=== PATIENT | female | born 1970 | race American Indian/Alaskan Native ===

== ENCOUNTER 2017-03-27 19:40 | Emergency (ER) | payer OTHER ==
[2017-03-27 19:40] VITALS: BMI 29.8
[2017-03-27 19:49] VITALS: TEMP 98
[2017-03-27] MEDS ORDERED: DiphenhydrAMINE 50 mg/ml Inj IVP STA (20:06)
[2017-03-27] MEDS ORDERED: Sodium Chloride 0.9% 1,000 ML IV STA (20:16)
[2017-03-27] MEDS ORDERED: DiphenhydrAMINE 50 mg/ml Inj ONE (20:17)
--- NOTE | 2017-03-27 21:07 | ED PDOC ---
HPI: Abdomen Time Seen by Provider: 03/27/17 19:53 Chief Complaint (Nursing): GI Problem Chief Complaint (Provider): Hiccups and vomiting History Per: Patient History/Exam Limitations: no limitations Onset/Duration Of Symptoms: Days (yesterday evening) Current Symptoms Are (Timing): Still Present Additional Complaint(s): Patient is a 47 y/o female with a past medical history of pancreatitis and a facial abscess for which she began taking Augmentin yesterday, who presents to the ED complaining of hiccups and vomiting since yesterday evening. Patient reports vomiting 5 times last night and twice today, and notes that she has been unable to eat. She denies any pain, chest pain, shortness of breath, or further symptoms. PMD: Leonard Altman Past Medical History Reviewed: Historical Data, Nursing Documentation, Vital Signs Vital Signs: Last Vital Signs Temp 98 F 03/27/17 19:45 Pulse 102 H 03/27/17 22:09 Resp 16 03/27/17 22:09 BP 133/90 03/27/17 22:09 Pulse Ox 99 03/27/17 22:09 - Medical History PMH: No Chronic Diseases - Surgical History Surgical History: Cholecystectomy - Family History Family History: States: No Known Family Hx, Unknown Family Hx - Social History Current smoker - smoking cessation education provided: No Alcohol: None Drugs: Denies - Home Medications Home Medications: Ambulatory Orders Medication Instructions Recorded Valacyclovir HCl [Valacyclovir] 1 gm PO Q8H 7 Days tab 08/13/15 DiphenhydrAMINE [Benadryl] 50 mg PO BID #15 cap 03/27/17 - Allergies Allergies/Adverse Reactions: Allergies Allergy/AdvReac Type Severity Reaction Status Date / Time No Known Allergies Allergy Verified 08/13/15 08:39 Review of Systems ROS Statement: Except As Marked, All Systems Reviewed And Found Negative Cardiovascular: Negative for: Chest Pain Respiratory: Positive for: Other (Hiccups). Negative for: Shortness of Breath Gastrointestinal: Positive for: Vomiting Physical Exam - Reviewed Nursing Documentation Reviewed: Yes Vital Signs Reviewed: Yes - Physical Exam Appears: Positive for: Non-toxic, No Acute Distress Head Exam: Positive for: ATRAUMATIC, NORMOCEPHALIC Skin: Positive for: Normal Color, Warm, Dry Eye Exam: Positive for: Normal appearance, EOMI, PERRL Neck: Positive for: Normal, Painless ROM, Supple Cardiovascular/Chest: Positive for: Regular Rate, Rhythm. Negative for: Murmur Respiratory: Positive for: Normal Breath Sounds, Other (hiccups). Negative for : Respiratory Distress Gastrointestinal/Abdominal: Positive for: Normal Exam, Soft. Negative for: Tenderness Back: Positive for: Normal Inspection. Negative for: L CVA Tenderness, R CVA Tenderness, Vertebral Tenderness Extremity: Positive for: Normal ROM. Negative for: Pedal Edema, Deformity Neurologic/Psych: Positive for: Alert, Oriented (x3). Negative for: Motor/ Sensory Deficits - ECG O2 Sat by Pulse Oximetry: 97 (RA) Pulse Ox Interpretation: Normal Medical Decision Making Medical Decision Making: Time: 20:06 Initial Impression: Hiccups Initial Plan: -Benadryl 50mg IVP -Sodium Chloride 0.9% 1,000ml, IV 500 mls/hr -Reglan 10mp IVP 2200 Hiccups and vomiting have ceased. Tolerating PO. Will d/c home. Scribe Attestation: Documented by Fito Bhatt, acting as a scribe for All Oliva MD Provider Scribe Attestation: All medical record entries made by the Scribe were at my direction and personally dictated by me. I have reviewed the chart and agree that the record accurately reflects my personal performance of the history, physical exam, medical decision making, and the department course for this patient. I have also personally directed, reviewed, and agree with the discharge instructions and disposition. Disposition - Clinical Impression Clinical Impression: Hiccups - Disposition Referrals: Leonard Altman MD [Family Provider] - Disposition: Routine/Home Disposition Time: 22:00 Condition: STABLE Prescriptions: DiphenhydrAMINE [Benadryl] 50 mg PO BID #15 cap Instructions: Hiccups (ED) Forms: [facility] ([place]ian)
[2017-03-27 22:09] VITALS: BP 133/90; PULSE 102; RESP 16
[2017-03-27 23:24] VITALS: O2SAT 97
== END 2017-03-27 22:15 | disposition home or self-care (01) ==
LOC: H.ER 19:40
DX: R06.6 Hiccough (principal); R11.10 Vomiting, unspecified
CPT/HCPCS: 96361; 96365; 96375; 99282; J1200; J2765; J7040